=== PATIENT | male | born 1960 | race Caucasian/White ===

== ENCOUNTER → 2016-09-24 | Outpatient (CLI) | payer OTHER ==
[~2016-09-24] MED LIST: ADVAIR 250/501 DISK IH; ADVAIR 500/501 DISK IH; CELEBREX200 MG PO; CIPRO500 MG PO; FLAGYL500 MG PO; LEVAQUIN500 MG PO; NEURONTIN300 MG PO; NEURONTIN400 MG PO; NORCO 5/3251 TABLET PO; PRILOSEC20 MG PO; PROVENTIL,2.5 MG/0.5 IH; PROZAC20 MG PO; SYMBICORT60 INHALAT IH; TRAMADOL HCL50 MG PO; VENTOLIN HFA18 GM IH; ZOFRAN4 MG PO
== END | disposition home or self-care (01) ==
LOC: RES 07:56
DX: Z02.71 Encounter for disability determination (principal)
CPT/HCPCS: 94010; 94729; 94760

== ENCOUNTER 2016-09-26 12:46 | Emergency (ER) | payer OTHER ==
[~2016-09-26] VITALS: Ht 182.9 cm; Wt 93.2 kg
[~2016-09-26 12:46] MED LIST changes: -CIPRO500 MG PO; -FLAGYL500 MG PO; -TRAMADOL HCL50 MG PO; -ZOFRAN4 MG PO
[2016-09-26 14:10] LABS: HEMATOCRIT 40.9 % (38.0-50.0); MCH 32.8 PG (29.0-34.0); MCHC 35.2 G/DL (30.0-36.0); MCV 93.2 FL (86-99); PLATELET COUNT 227 K/uL (156-360); RBC DIS.WIDTH-CV 11.9 % (11.8-14.6); RED BLOOD COUNT 4.39 M/uL (4.00-5.50); WHITE BLOOD COUNT 14.9 K/uL (4.1-10.2)
[2016-09-26 14:26] LABS: AMYLASE 46 IU/L (1-118); CHLORIDE 104 mEq/L (99-109); POTASSIUM 3.6 mEq/L (3.7-5.4); SODIUM 141 mEq/L (136-147)
[2016-09-26 14:28] LABS: GLUCOSE 173 mg/dL (70-99)
[2016-09-26 14:29] LABS: ANION GAP 17 MEQ/L (2-14)
[2016-09-26 14:30] LABS: TOTAL BILIRUBIN 1.1 mg/dL (0.0-1.0)
[2016-09-26 14:31] LABS: ALKALINE PHOSPHATASE 71 IU/L (3-129)
[2016-09-26 14:32] LABS: GFR ESTIMATE (CALCULATED) > 59 mL/min/
[2016-09-26 14:33] LABS: UREA NITROGEN (BUN) 10 mg/dL (9-23)
[2016-09-26 14:35] LABS: LIPASE 11 U/L (1.0-51.0); TROP-I INTERPRETATION NEGATIVE; TROPONIN-I < 0.01 ng/mL (0.0-0.30)
[2016-09-26 14:36] LABS: ADD MIUA? YES; BILIRUBIN NEGATIVE; BLOOD NEGATIVE; GLUCOSE (STRIP) NEGATIVE; KETONES 20; LEUKOCYTES NEGATIVE; NITRITE NEGATIVE; PROTEIN (STRIP) 100; UROBILINOGEN 0.2 MG/DL (0.2-1.0)
[2016-09-26 15:10] LABS: BACTERIA RARE /HPF; EPITHELIAL CELLS NONE SEEN /HPF; MUCUS 2+ /LPF; UCUL ADDED? NO; WHITE BLOOD CELLS 0-5 /HPF (0-5)
[2016-09-26 15:11] LABS: COLOR DK YELLOW ((YELLOW))
[2016-09-26 16:37] LABS: TROP-I INTERPRETATION NEGATIVE; TROPONIN-I < 0.01 ng/mL (0.0-0.30)
[2016-09-26] MEDS ORDERED: CIPRO500 MG PO (17:25)
[2016-09-26] MEDS ORDERED: FLAGYL500 MG PO (17:26)
[2016-09-26] MEDS ORDERED: ZOFRAN4 MG PO (17:26)
[2016-09-26] MEDS ORDERED: TRAMADOL HCL50 MG PO (17:27)
[2016-09-26 17:41] VITALS: BP 121/79
== END 2016-09-26 17:42 | disposition home or self-care (01) ==
LOC: RME 12:46 → EME 12:46 → RME 17:42
PROVIDERS: Physician Assistant
DX: K52.9 Noninfective gastroenteritis and colitis, unspecified (principal); R11.2 Nausea with vomiting, unspecified; R07.9 Chest pain, unspecified; J45.909 Unspecified asthma, uncomplicated; K21.9 Gastro-esophageal reflux disease without esophagitis; G47.30 Sleep apnea, unspecified; Z87.891 Personal history of nicotine dependence
CPT/HCPCS: 71020; 74177; 80053; 81003; 82150; 83690; 84484; 85027; 93005; 99281; 99285; J2060; J2270; J2405; J2765; J3010; J7030